=== PATIENT | female | born 1950 | race Two or more races ===

== ENCOUNTER 2017-04-14 09:53 | Emergency (ER) | payer MEDICARE, MEDICAID ==
[2017-04-14] MEDS ORDERED: NS 0.9% 1000 ML* 1,000 ML IV ONE ×2 (10:47→13:43)
[2017-04-14] MEDS ORDERED: Ondansetron INJ* 2 MG/ML VIAL IV ONE (10:49)
[2017-04-14] MEDS ORDERED: Ondansetron INJ* 2 MG/ML VIAL ONE (10:50)
[2017-04-14] MEDS ORDERED: Ketorolac INJ* 30 MG/ML 1 ML VIAL IV PUSH ONE (11:00)
--- NOTE | 2017-04-14 11:02 | ED ---
Nausea/Vomiting/Diarrhea HPI - HPI Summary HPI Summary: 66 female presents to ED with complaints of nausea, vomiting, diffuse abdominal pain and diarrhea. Patient states symptoms began around 5pm yesterday 04/13/17 which began with stomach upset however worsened throughout the night last night and was accompanied with vomiting and diarrhea. States she has been having episodes of diarrhea/vomiting every 15-30 minutes throughout the night with last episodes being around 830-900am today. Took an omeprazole yesterday when began to have stomach upset however did not give relief. Describes abdominal pain to be diffuse and cramping/sharp. She denies chest pain and trouble breathing. No abdominal pain diffusely. Denies blood in stool and vomit. No urinary symptoms. No PMHx other than HTN and takes 2 medications for it. No other medication or complaints. Has had similar symptoms in the past, 2 years ago, when she was diagnosed and treated for an "intestinal infection". Also admits to recent antibiotic use 1 month ago for URI. No recent travel or known sick contacts. No known take out food. - History of Current Complaint Chief Complaint: EDGeneral Stated Complaint: FEVER/WEAK/DIZZINESS Time Seen by Provider: 04/14/17 10:06 Hx Obtained From: Patient ?: No Onset/Duration: Sudden Onset, Lasting Hours, Still Present Timing: Constant Severity Initially: Mild Severity Currently: Moderate Pain Intensity: 8 Pain Scale Used: 0-10 Numeric Location: Diffuse Character: Sharp, Cramping Nausea/Vomiting Presence: Nauseated, Vomiting Vomiting Frequency: Every 15-60 minutes Nausea/Vomiting Duration: 0-12 hours Vomiting Characteristics: Retching, Bilious Diarrhea Presence: Yes Diarrhea Frequency: Every 15-60 minutes Diarrhea Duration: 0-12 hours Diarrhea Characteristics: Watery - Allergies/Home Medications Allergies/Adverse Reactions: Allergies Allergy/AdvReac Type Severity Reaction Status Date / Time No Known Allergies Allergy Verified 04/09/17 15:03 PMH/Surg Hx/FS Hx/Imm Hx Endocrine/Hematology History: Denies: Hx Diabetes, Hx Thyroid Disease Cardiovascular History: Reports: Hx Hypertension Denies: Hx Congestive Heart Failure Comment Only: Other Cardiovascular Problems/Disorders - MALAGINACY Respiratory History: Reports: Hx Asthma Denies: Hx Chronic Obstructive Pulmonary Disease (COPD) GI History: Reports: Other GI Disorders - appendectomy, bowel Denies: Hx Ulcer History: Denies: Hx Renal Disease Musculoskeletal History: Reports: Other Musculoskeletal History - BACK PAIN 2 YEARS AGO- NO PROBLEMS NOW Denies: Hx Osteoporosis Sensory History: Reports: Hx Contacts or Glasses - REAING Denies: Hx Hearing Aid Opthamlomology History: Reports: Hx Contacts or Glasses - REAING Neurological History: Reports: Hx Headaches - APPROX 1 EVERY 2 MONTHS, Hx Migraine - Cancer History Cancer Type, Location and Year: LUNG CA Hx Chemotherapy: No Hx Radiation Therapy: No - NO RADIATION OR CHEMO, JUST SURGERY - Surgical History Surgery Procedure, Year, and Place: Appendectomy 1973, Intestinal Occlusion 1988 ,breast bx, bilateral cataract extractions, mediastinoscopy; 10/2013- REMOVAL [place] [facility] [place] . Hx Anesthesia Reactions: No - Immunization History Date of Tetanus Vaccine: Unk Date of Influenza Vaccine: August 2012 Infectious Disease History: No Infectious Disease History: Denies: Hx Hepatitis, Hx Human Immunodeficiency Virus (HIV), Traveled Outside the [place] in Last 30 Days - Family History Known Family History: Positive: None - Social History Alcohol Use: None Substance Use Type: Reports: None Smoking Status (MU): Never Smoked Tobacco Have You Smoked in the Last Year: No Review of Systems Constitutional: Negative Cardiovascular: Negative Respiratory: Negative Positive: Abdominal Pain, Vomiting, Diarrhea, Nausea Neurological: Negative All Other Systems Reviewed And Are Negative: Yes Physical Exam Triage Information Reviewed: Yes Vital Signs On Initial Exam: Initial Vitals Temp Pulse Resp BP Pulse Ox 98.0 F 110 15 154/83 98 04/14/17 10:00 04/14/17 10:00 04/14/17 10:00 04/14/17 10:00 04/14/17 10:00 tachycardia improved to 94 after fluids, BP also improved to 134/77 Vital Signs Reviewed: Yes Appearance: Positive: Well-Appearing, No Pain Distress, Well-Nourished Skin: Positive: Warm, Skin Color Reflects Adequate Perfusion, Dry. Negative: Cold, Cyanosis @, Jaundiced, Pale, Erythema @ Head/Face: Positive: Normal Head/Face Inspection Eyes: Positive: EOMI, COREY, Conjunctiva Clear ENT: Positive: Normal ENT inspection, Hearing grossly normal, Pharynx normal. Negative: Nasal congestion, Nasal drainage Neck: Positive: Supple, Nontender, No Lymphadenopathy Respiratory/Lung Sounds: Positive: Clear to Auscultation, Breath Sounds Present. Negative: Rales, Rhonchi, Tracheal Deviation, Wheezes Cardiovascular: Positive: Normal, RRR, Pulses are Symmetrical in both Upper and Lower Extremities. Negative: Murmur, Rub Abdomen Description: Positive: No Organomegaly, Soft, Guarding, Other: - tender on palpation diffusely however no pain of RLQ. Negative: Bruit, CVA Tenderness (R), CVA Tenderness (L), Distended, Peritoneal Signs, Pulsatile Mass Bowel Sounds: Positive: Present, Hyperactive Musculoskeletal: Positive: Normal, Strength/ROM Intact Neurological: Positive: Normal, Sensory/Motor Intact, Alert, Oriented to Person Place, Time, CN Intact II-III, Reflexes Intact, NV Bundle Intact Distally, Normal Gait - [place] Coma Scale Coma Scale Total: 15 Diagnostics - Vital Signs Vital Signs Temp Pulse Resp BP Pulse Ox 04/14/17 10:00 98.0 F 110 15 154/83 98 - Laboratory Result Diagrams: 04/14/17 11:14 04/14/17 11:14 Lab Statement: Any lab studies that have been ordered have been reviewed, and results considered in the medical decision making process. - EKG EKG Cardiac Rate: NL EKG Rhythm: Sinus Tachycardia ST Segment: Normal Ectopy: None EKG Interpretation: sinus tachy at 107, normal without st elevation EKG Comparison: No Significant Change Re-Evaluation - Re-Evaluation First Eval Re-Evaluation Time: 12:30 Change: Improved - feeling better waiting to give stool sample Second Eval Re-Evaluation Time: 15:00 Change: Improved - feeling better, no episodes of vomiting or diarrhea, tachycardia improved after fluids, updated on lab results. ready to be d/c. able to tolerate po Naus/Vom/Diarrhea Course/Dx - Course Course Of Treatment: labs obtained slightly elevated WBC with left shift and CRP elevation. negative troponin. stool culture attempted to be obtained however patient was unable to give significant amount. stool occult blood obtained and negative. blood cultures obtained. did have recent antibiotic use. was unable to obtain CT abd/pelvis due to recent scan on 04/09 also due to low conern for diverticulitis at this time, no pain in RLQ on palpation. Afebrile and normal vitals other than slight tachycardia, patient states this has been ongoing for a while and follows flat hammerer. Also dehydrated/suffering viral illness which also could be causing tachycardia. No chest pain or trouble breathing. On re-eval patient was feeling much improved without any more episodes of nausea/vomiting. Was able to tolerate PO. Given 2 bags of fluids, toradol and zofran had relief. Does not appear to need antibiotic treatment at this time. No concern for other etiology at this time. Aware of worsening signs and symptoms to watch out for. Return if occur or do not improve within 48 hours , especially diarrhea. Follow up with PCP. - Differential Dx/Diagnosis Differential Diagnoses - Female: Diverticulitis, Diverticulosis, Gastroenteritis (Viral), Gastroenteritis (Bacterial), Vomiting, Diarrhea, Colitis Provider Diagnoses: gastroenteritis, nausea/vomiting/diarrhea Condition At Discharge: Improved - Physician Notification/Consults Discussed Case/Management/Disposition Of Patient With: Dr Roland Discharge - Discharge Plan Condition: Stable Disposition: HOME Prescriptions: Ondansetron ODT TAB* [Zofran 4 MG Odt TAB*] 4 mg PO Q6H PRN #10 tab.odt PRN Reason: Nausea Patient Education Materials: Gastroenteritis (ED), Acute Nausea and Vomiting ( ED), Acute Diarrhea (ED) Referrals: Federico Silva MD [Primary Care Provider] - Additional Instructions: Increase fluid intake to stay well hydrated. Stick to a bland diet when able to eat such as bananas, rice, applesauce and toast. Take prescribed zofran as needed for nausea/vomiting. Get plenty of rest. Any new or worsening symptoms such as fever, profuse vomiting/diarrhea and generally feeling ill lasting longer than 48 hours, blood in stool or vomit, please return to ED immediately as discussed. Follow up with PCP within 1 week to ensure improvement.
[2017-04-14 11:20] LABS: ABS Basophils 0 10^3/ul (0-0.2); ABS Eosinophils 0 10^3/ul (0-0.6); ABS Lymphocytes 0.6 10^3/ul (1.0-4.8); ABS Monocytes 0.3 10^3/ul (0-0.8); ABS Neutrophils 11.1 10^3/ul (1.5-7.7); ABS Nucleated RBC 0 10^3/ul; Eosinophil % 0 % (0-6); Hematocrit 36 % (35-47); Hemoglobin 12.1 g/dl (12.0-16.0); Lymphocyte % 5.3 % (25-47); Mean Corpuscular HGB Conc 34 g/dl (31-36); Mean Corpuscular Hemoglobin 27 pg (27-31); Mean Corpuscular Volume 81 fL (80-97); Mean Platelet Volume 8 um3 (7.4-10.4); Nucleated Red Blood Cells % 0; Platelet Count 234 10^3/ul (150-450); Red Blood Count 4.49 10^6/ul (4.0-5.4); Red Cell Distribution Width 15 % (10.5-15)
[2017-04-14 11:39] LABS: EGFR Non-African American 92.6 (>60)
[2017-04-14] MEDS ORDERED: Ondansetron ODT TAB* 4 MG PO PRN (15:30)
[2017-04-14] MEDS ORDERED: Ondansetron ODT TAB* 4 MG ONE (15:40)
[2017-04-14 15:45] VITALS: BP 130/84
[2017-04-14] MEDS ORDERED: Ondansetron ODT TAB* 4 MG PO ONE (15:51)
== END 2017-04-14 15:43 | disposition home or self-care (01) ==
LOC: ED 09:53
DX: K52.9 Noninfective gastroenteritis and colitis, unspecified (principal); R11.2 Nausea with vomiting, unspecified; R10.9 Unspecified abdominal pain; R19.7 Diarrhea, unspecified; R42 Dizziness and giddiness
CPT/HCPCS: 36415; 80053; 82270; 83605; 83690; 83735; 83880; 84484; 85025; 86140; 87040; 93005; 96374; 96375; 99283; A9270-GY; J1885; J2405

== ENCOUNTER 2018-02-10 13:06 | Emergency (ER) | payer MEDICARE, MEDICAID ==
[2018-02-10] MEDS ORDERED: NS 0.9% 1000 ML* 1,000 ML IV ONE (16:20)
[2018-02-10] MEDS ORDERED: Ondansetron INJ* 2 MG/ML VIAL IV ONE (16:20)
[2018-02-10] MEDS ORDERED: Morphine INJ* 4 MG/ML 1 ML SYRINGE (NEW SYRINGE VERSION) IV ONE (16:20)
[2018-02-10] MEDS ORDERED: Albuterol/Ipratropium NEB.SOL* Albuterol 2.5 MG/Ipratropium 0.5 MG 3 ML INH ONE (16:21)
[2018-02-10] MEDS ORDERED: Diltiazem IV* 5 MG/ML 5 ML VIAL (for loading dose/IV Push) (25 MG) IV SLOW PU ONE (16:24)
[2018-02-10 16:38] LABS: ABS Basophils 0.1 10^3/ul (0-0.2); ABS Eosinophils 0.1 10^3/ul (0-0.6); ABS Lymphocytes 3.8 10^3/ul (1.0-4.8); ABS Monocytes 0.6 10^3/ul (0-0.8); ABS Nucleated RBC 0 10^3/ul; Eosinophil % 1.6 % (0-6); Hematocrit 40 % (35-47); Hemoglobin 13.1 g/dl (12.0-16.0); Lymphocyte % 39.2 % (25-47); Mean Corpuscular HGB Conc 33 g/dl (31-36); Mean Corpuscular Hemoglobin 27 pg (27-31); Mean Corpuscular Volume 82 fL (80-97); Mean Platelet Volume 8.1 um3 (7.4-10.4); Nucleated Red Blood Cells % 0.1; Platelet Count 300 10^3/ul (150-450); Red Blood Count 4.82 10^6/ul (4.00-5.40); Red Cell Distribution Width 15 % (10.5-15); White Blood Count 9.6 10^3/ul (3.5-10.8)
--- NOTE | 2018-02-10 16:43 | ED ---
GI/ HPI - HPI Summary HPI Summary: 67 year old female presents with abdominal pain back pain for the past 3 weeks. She states that it starts in the left side of her lower back. States it hurts in her entire abdomen. She admits to diarrhea. She admits to nausea and vomiting. She also states she's been having a cough for 2 weeks. 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 States she is scheduled for CT tomorrow of chest. Dr. Fletcher is her oncologist. She denies any chest pain. She admits shortness breath. She has history of asthma. She does not use inhaler. She denies any sore throat. she admits to dysuria. She admits to weakness. She admits to subjective fevers. States her abdominal pain feels similar to when she had intra-abdominal infection in 2012. She denies any recent antibiotic use. No blood in her stool. No injury to her back. No saddle anesthesia or loss of bowel or bladder. She admits to dysuria. She denies any weakness this in her legs. She admits to occasionally pain down her legs. No numbness or tingling down her legs. Has full range of motion of her back. - History of Current Complaint Chief Complaint: EDBackInjuryPain Time Seen by Provider: 02/10/18 16:10 Stated Complaint: ABD/BACK PAIN Pain Intensity: 8 - Allergy/Home Medications Allergies/Adverse Reactions: Allergies Allergy/AdvReac Type Severity Reaction Status Date / Time No Known Allergies Allergy Verified 02/10/18 13:24 PMH/Surg Hx/FS Hx/Imm Hx Endocrine/Hematology History: Denies: Hx Diabetes, Hx Thyroid Disease Cardiovascular History: Reports: Hx Hypertension Denies: Hx Congestive Heart Failure Comment Only: Other Cardiovascular Problems/Disorders - MALAGINACY Respiratory History: Reports: Hx Asthma Denies: Hx Chronic Obstructive Pulmonary Disease (COPD) GI History: Reports: Other GI Disorders - appendectomy, bowel Denies: Hx Ulcer History: Denies: Hx Renal Disease Musculoskeletal History: Reports: Other Musculoskeletal History - BACK PAIN 2 YEARS AGO- NO PROBLEMS NOW Denies: Hx Osteoporosis Sensory History: Reports: Hx Contacts or Glasses - REAING Denies: Hx Hearing Aid Opthamlomology History: Reports: Hx Contacts or Glasses - REAING Neurological History: Reports: Hx Headaches - APPROX 1 EVERY 2 MONTHS, Hx Migraine - Cancer History Cancer Type, Location and Year: LUNG CA Hx Chemotherapy: No Hx Radiation Therapy: No - NO RADIATION OR CHEMO, JUST SURGERY - Surgical History Surgery Procedure, Year, and Place: Appendectomy 1973, Intestinal Occlusion 1988 ,breast bx, bilateral cataract extractions, mediastinoscopy; 10/2013- [place]G [place]CER- [facility] [place] [facility] [place] LLAM[place]. . Hx Anesthesia Reactions: No - Immunization History Date of Tetanus Vaccine: Unk Date of Influenza Vaccine: August 2012 Infectious Disease History: No Infectious Disease History: Denies: Hx Hepatitis, Hx Human Immunodeficiency Virus (HIV), Traveled Outside the [place] in Last 30 Days - Family History Known Family History: Positive: None - Social History Alcohol Use: None Substance Use Type: Reports: None Smoking Status (MU): Never Smoked Tobacco Have You Smoked in the Last Year: No Review of Systems Negative: Fever Negative: Chest Pain Positive: Cough. Negative: Shortness Of Breath Positive: Abdominal Pain, Vomiting, Diarrhea, Nausea Positive: dysuria All Other Systems Reviewed And Are Negative: Yes Physical Exam Triage Information Reviewed: Yes Vital Signs On Initial Exam: Initial Vitals Temp Pulse Resp BP Pulse Ox 97.8 F 88 20 154/96 100 02/10/18 13:17 02/10/18 13:17 02/10/18 13:17 02/10/18 13:17 02/10/18 13:17 Vital Signs Reviewed: Yes Appearance: Positive: Well-Appearing Skin: Positive: Warm, Dry Head/Face: Positive: Normal Head/Face Inspection Eyes: Positive: Normal, EOMI, COREY, Conjunctiva Clear ENT: Positive: Normal ENT inspection, Pharynx normal, TMs normal Neck: Positive: Supple, Nontender, No Lymphadenopathy Respiratory/Lung Sounds: Positive: Clear to Auscultation, Breath Sounds Present Cardiovascular: Positive: Normal, RRR Abdomen Description: Positive: Soft, Other: - mild diffuse tenderness Bowel Sounds: Positive: Present Musculoskeletal: Positive: Strength/ROM Intact - back with pain, Other - tenderness lower back, neg SLR, good pulses, sensation grossly intact Neurological: Positive: Normal Psychiatric: Positive: Normal Diagnostics - Vital Signs Vital Signs Temp Pulse Resp BP Pulse Ox 02/10/18 13:17 97.8 F 88 20 154/96 100 - Laboratory Lab Results: Lab Results 02/10/18 Range/Units 16:31 WBC 9.6 (3.5-10.8) 10^3/ul RBC 4.82 (4.00-5.40) 10^6/ul Hgb 13.1 (12.0-16.0) g/dl Hct 40 (35-47) % MCV 82 (80-97) fL MCH 27 (27-31) pg MCHC 33 (31-36) g/dl RDW 15 (10.5-15) % Plt Count 300 (150-450) 10^3/ul MPV 8.1 (7.4-10.4) um3 Neut % (Auto) 52.2 (38-83) % Lymph % (Auto) 39.2 (25-47) % [place] % (Auto) 6.2 (0-7) % Eos % (Auto) 1.6 (0-6) % Baso % (Auto) 0.8 (0-2) % Absolute Neuts (auto) 5.0 (1.5-7.7) 10^3/ul Absolute Lymphs (auto) 3.8 (1.0-4.8) 10^3/ul Absolute Monos (auto) 0.6 (0-0.8) 10^3/ul Absolute Eos (auto) 0.1 (0-0.6) 10^3/ul Absolute Basos (auto) 0.1 (0-0.2) 10^3/ul Absolute Nucleated RBC 0 10^3/ul Nucleated RBC % 0.1 Result Diagrams: 02/10/18 16:31 02/10/18 16:31 Lab Statement: Any lab studies that have been ordered have been reviewed, and results considered in the medical decision making process. - CT abd CT Interpretation Completed By: Radiologist Summary of CT Findings: #. Unchanged 1.7 cm RIGHT adrenal nodule compared with the January 08, 2017 CT. #. No pathologic process of the alimentary tract evident. #. Negative for lymphadenopathy. #. Negative for aneurysm of the abdominal aorta. #. Negative for suspicious focal osseous lesions or fractures. #. Multilevel advanced degenerative spondylosis and facet joint osteoarthritis with. resulting acquired spinal stenosis as described with significant interval worsening. compared with the most recent CT through the lumbar sacral spine from March 19, 2014. - EKG No standard instances Cardiac Rate: NL EKG Rhythm: Sinus Rhythm Summary of EKG Findings: sinus rhythm, prolonged NC Re-Evaluation - Re-Evaluation First Eval Re-Evaluation Time: 20:02 Change: Improved Comment: feeling better, bp normal. GIGU Course/Dx - Course Course Of Treatment: 67 year old female presents with abdominal pain back pain for the past 3 weeks. She states that it starts in the left side of her lower back. States it hurts in her entire abdomen. She admits to diarrhea. She admits to nausea and vomiting. She also states she's been having a cough for 2 weeks. 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 States she is scheduled for CT tomorrow of chest. Dr. Fletcher is her oncologist. She denies any chest pain. She admits shortness breath. She has history of asthma. She does not use inhaler. She denies any sore throat. she admits to dysuria. She admits to weakness. She admits to subjective fevers. States her abdominal pain feels similar to when she had intra-abdominal infection in 2012. She denies any recent antibiotic use. No blood in her stool. No injury to her back. No saddle anesthesia or loss of bowel or bladder. She admits to dysuria. She denies any weakness this in her legs. She admits to occasionally pain down her legs. No numbness or tingling down her legs. Has full range of motion of her back. On exam tenderness of left side of lower back. Negative straight leg raise. Neurovascularly intact. has diffuse tenderness of the abdomen. lungs CTA. Discussed will get a CT of the chest with the abdomen as scheduled for such tomorrow. urine normal. wbc normal. troponin neg. bnp normal. ekg normal. bp was high so dilitazem was given which reduced it to normal. CT chest, abd showed no acute process but worsening degenerative changes. discussed will add on muscle relaxer for back pain. told to follow up with primary about blood pressure and [place]ira about cancer. patient understand and agrees with plan. - Diagnoses Differential Diagnoses - Female: Colitis, Pyelonephritis, Urinary Tract Infection Provider Diagnoses: Back pain, Abdominal pain, Cough, Hypertension Discharge - Sign-Out/Discharge Documenting (check all that apply): Patient Departure - Discharge Plan Condition: Good Disposition: HOME Prescriptions: Albuterol HFA INHALER* [Ventolin HFA Inhaler*] 1 puff INH Q6H PRN #1 mdi PRN Reason: Cough Methocarbamol TAB* [Robaxin 500 MG TAB*] 500 mg PO TID PRN #15 tab PRN Reason: Pain Patient Education Materials: Back Pain (ED) Referrals: Federico Silva MD [Primary Care Provider] - Additional Instructions: Take muscle relaxers three times a day take 1 puff inhaler every 6 hours for cough Use Tylenol for pain every 6 hours ice/heat area, move as much as possible Follow up with primary within 5 days about blood pressure, call to get meds refilled Follow up with dr fletcher Return to ED if develop any new or worsening symptoms - Billing Disposition and Condition Condition: GOOD Disposition: Home
[2018-02-10 16:46] LABS: INR 0.9 (0.77-1.02)
[2018-02-10 16:55] LABS: EGFR Non-African American 95.7 (>60)
[2018-02-10] MEDS ORDERED: Iohexol 300* (CONTRAST) 10 ML SDV IV ONE (17:14)
[2018-02-10 17:38] LABS: Urine Appearance Clear; Urine Blood 1+ (Negative); Urine Color Straw; Urine Ketones Negative (Negative); Urine Protein Negative (Negative); Urine Red Blood Cell Trace(0-2/hpf) (Absent); Urine Specific Gravity 1.005 (1.010-1.030); Urine Urobilinogen Negative (Negative); Urine White Blood Cell Absent (Absent)
--- NOTE | 2018-02-10 19:40 | RAD ---
INDICATION: Cough. Diffuse abdominal pain. Low back pain. Post appendectomy. Previous bowel obstruction. History of lung cancer. COMPARISON: April 09, 2017 CT. TECHNIQUE: Multidetector CT images were obtained from the lung apices to the ischial tuberosities with 80 mL Omnipaque 300 IV contrast. Oral contrast administered. Multiplanar bone algorithm images of the lumbar sacral spine provided. CHEST REPORT: Image 21; 0.7 cm nodule at the RIGHT upper lobe is unchanged. RIGHT hemithorax volume loss reflecting previous partial pneumonectomy. Negative for pleural effusions or pneumothorax. Negative for thoracic lymphadenopathy, cardiomegaly, pericardial effusion. Normal diameter thoracic aorta. No evidence for dissection of the thoracic aorta within limits of routine contrast-enhanced CT. Postsurgical defects at the RIGHT sixth rib reflecting previous thoracotomy. No suspicious thoracic osseous lesions evident. CHEST IMPRESSION: #. Noted RIGHT upper lobe pulmonary nodule is grossly unchanged compared with a CT from June 19, 2014 without concern most consistent with a benign granuloma. #. No acute intrathoracic process evident. ABDOMEN PELVIS REPORT: LIVER / GALLBLADDER / PANCREAS / SPLEEN: Unchanged 1.5 cm water density cyst at the dome of the liver. Post cholecystectomy with unchanged mild intra and extrahepatic biliary dilatation. Unremarkable pancreas and spleen. ALIMENTARY TRACT: Negative for CT abnormality of the upper GI, small bowel, or colon. The appendix is not visualized consistent with surgical history. Negative for ascites, free air, or significant hernias. MESENTERIC: Unremarkable. ADRENAL / GENITOURINARY: No significant change in 1.7 cm soft tissue density RIGHT adrenal nodule compared with the April 09, 2017 exam. Unremarkable LEFT adrenal gland. Symmetric nephrograms and pyelograms. Negative for hydronephrosis. No suspicious focal renal lesions or abnormality of the ureters or distended urinary bladder. Small calcified uterine fibroids. Unremarkable adnexal regions. RETROPERITONEAL: Negative for lymphadenopathy. VASCULAR: Negative for aneurysm of the abdominal aorta or iliac arteries. Negative for arterial dissection within limits of routine portal venous phase CT. Unremarkable partially decompressed IVC. BONES: Multilevel degenerative spondylosis at the lumbar sacral spine with reactive endplate sclerosis. No suspicious focal osseous lesions evident. At L1-L2 mild annular disc bulge and posterior element osteoarthritis results in mild alteration in the shape of the thecal sac without significant resulting central canal stenosis. At L2-L3 dorsal disc osteophyte complex and posterior element osteoarthritis results in moderate acquired central canal stenosis and mild RIGHT foraminal stenosis. At L3-L4 annular disc bulge and posterior element osteoarthritis results in moderate acquired central canal stenosis and mild RIGHT foraminal stenosis. At L4-L5 annular disc bulge and posterior element osteoarthritis results in severe acquired central canal stenosis and mild RIGHT and moderate LEFT foraminal stenosis. At L5-S1 vertebral endplate osteophytosis and facet joint osteoarthritis results in mild RIGHT and moderate LEFT foraminal stenosis. SOFT TISSUE: Unremarkable. ABDOMEN PELVIS IMPRESSION: #. Unchanged 1.7 cm RIGHT adrenal nodule compared with the January 08, 2017 CT. #. No pathologic process of the alimentary tract evident. #. Negative for lymphadenopathy. #. Negative for aneurysm of the abdominal aorta. #. Negative for suspicious focal osseous lesions or fractures. #. Multilevel advanced degenerative spondylosis and facet joint osteoarthritis with resulting acquired spinal stenosis as described with significant interval worsening compared with the most recent CT through the lumbar sacral spine from March 19, 2014.
[2018-02-10 20:16] VITALS: BP 129/74
== END 2018-02-10 20:16 | disposition home or self-care (01) ==
LOC: ED 13:06
DX: M54.5 Low back pain (principal); R10.84 Generalized abdominal pain; R05 Cough; R30.0 Dysuria; I10 Essential (primary) hypertension; Z85.118 Personal history of other malignant neoplasm of bronchus and lung; Z90.89 Acquired absence of other organs
CPT/HCPCS: 36415; 71260; 72131; 74177; 80053; 81003; 81015; 83605; 83690; 83735; 83880; 84484; 85025; 85610; 85730; 86140; 93005; 96374; 96375; 99284; A9270-GY; J2270; J2405; Q9967

== ENCOUNTER 2018-12-24 09:31 | Emergency (ER) | payer MEDICARE, MEDICAID ==
--- NOTE | 2018-12-24 11:22 | ED ---
Complex/Multi-Sys Presentation - HPI Summary HPI Summary: This patient is a 68 year old F presenting to [facility] with a chief complaint of generalized weakness and body pain since 1900 yesterday. Last night, she developed generalized weakness and body pain, strong PEDERSEN, and increased blood pressure. Three months ago, pt was in [place] and developed general body pain, stronger on the right side. The patient rates the pain 9/10 in severity. Symptoms aggravated by nothing. Symptoms alleviated by nothing. Patient reports fever, fatigue, ABD pain. Patient denies vomiting, diarrhea, dysuria, numbness/tingling. Medications reviewed. Allergies noted. Pt has hx of lung cancer. Pt does not smoke or drink alcohol. - History Of Current Complaint Chief Complaint: EDGeneral Time Seen by Provider: 12/24/18 11:12 Hx Obtained From: Patient Onset/Duration: Sudden Onset, Lasting Days - 1, Still Present Severity Currently: Moderate Severity Initially: Moderate Character: Pressure - entire body Aggravating Factor(s): nothing Alleviating Factor(s): nothing Associated Signs And Symptoms: Positive: Weakness, Headache, Abdominal Pain, Fever, Other - positive - generalized body pain, increased blood pressure, fatigue. negative - numbness/tingling. Negative: Vomiting, Diarrhea, Dysuria - Allergies/Home Medications Allergies/Adverse Reactions: Allergies Allergy/AdvReac Type Severity Reaction Status Date / Time No Known Allergies Allergy Verified 12/24/18 09:40 Home Medications: Home Medications Albuterol HFA INHALER* [Ventolin HFA Inhaler*] 1 - 2 puff INH Q6H PRN 12/24/18 [ History Confirmed 12/24/18] Omeprazole CAP (NF) [Prilosec CAP* 20 MG] 20 mg PO DAILY 12/24/18 [History Confirmed 12/24/18] Sertraline* [Zoloft*] 50 mg PO DAILY 12/24/18 [History Confirmed 12/24/18] PMH/Surg Hx/FS Hx/Imm Hx Previously Healthy: No Endocrine/Hematology History: Denies: Hx Diabetes, Hx Thyroid Disease Cardiovascular History: Reports: Hx Hypertension Denies: Hx Congestive Heart Failure, Hx Pacemaker/ICD Comment Only: Other Cardiovascular Problems/Disorders - MALAGINACY Respiratory History: Reports: Hx Asthma Denies: Hx Chronic Obstructive Pulmonary Disease (COPD) GI History: Reports: Other GI Disorders - appendectomy, bowel Denies: Hx Ulcer History: Denies: Hx Renal Disease Musculoskeletal History: Reports: Other Musculoskeletal History - BACK PAIN 2 YEARS AGO- NO PROBLEMS NOW Denies: Hx Osteoporosis Sensory History: Reports: Hx Contacts or Glasses - REAING Denies: Hx Hearing Aid Opthamlomology History: Reports: Hx Contacts or Glasses - REAING Neurological History: Reports: Hx Headaches - APPROX 1 EVERY 2 MONTHS, Hx Migraine Psychiatric History: Denies: Hx Panic Disorder - Cancer History Cancer Type, Location and Year: LUNG CA Hx Chemotherapy: No Hx Radiation Therapy: No - NO RADIATION OR CHEMO, JUST SURGERY - Surgical History Surgical History: Yes Surgery Procedure, Year, and Place: Appendectomy 1973, Intestinal Occlusion 1988 ,breast bx, bilateral cataract extractions, mediastinoscopy; 10/2013- [place] [facility] [place] . Hx Anesthesia Reactions: No - Immunization History Date of Tetanus Vaccine: Unk Date of Influenza Vaccine: August 2012 Infectious Disease History: No Infectious Disease History: Denies: Hx Hepatitis, Hx Human Immunodeficiency Virus (HIV), Traveled Outside the [place] in Last 30 Days - Family History Known Family History: Positive: None - Social History Alcohol Use: None Substance Use Type: Reports: None Smoking Status (MU): Never Smoked Tobacco Have You Smoked in the Last Year: No Review of Systems Positive: Fever, Fatigue Cardiovascular: Other - positive - increased blood pressure Positive: Abdominal Pain. Negative: Vomiting, Diarrhea Negative: dysuria Musculoskeletal: Other - positive - whole body pain Positive: Headache, Weakness. Negative: Numbness Positive: Other All Other Systems Reviewed And Are Negative: Yes Physical Exam - Summary Physical Exam Summary: Constitutional: Well-developed, Well-nourished, Alert. (-) Distressed Skin: Warm, Dry HENT: Normocephalic; Atraumatic Eyes: Conjunctiva normal Neck: Musculoskeletal ROM normal neck. (-) JVD, (-) Stridor, (-) Tracheal deviation Cardio: Rhythm regular, rate normal, Heart sounds normal; Intact distal pulses; The pedal pulses are 2+ and symmetric. Radial pulses are 2+ and symmetric. (-) Murmur Pulmonary/Chest wall: Effort normal. (-) Respiratory distress, (-) Wheezes, (-) Rales Abd: Soft. (-) Tenderness, (-) Distension, (-) Guarding, (-) Rebound Musculoskeletal: (-) Edema Lymph: (-) Cervical adenopathy Neuro: Alert, Oriented x3, Strength normal, Cranial nerves II-XII are grossly intact. (-) Dysmetria, (-) Nystagmus, (-) Ataxia by finger to nose testing, (-) Sensory deficit. Psych: Mood and affect Normal Triage Information Reviewed: Yes Vital Signs On Initial Exam: Initial Vitals Temp Pulse Resp BP Pulse Ox 98.3 F 82 16 180/98 98 12/24/18 09:34 12/24/18 09:34 12/24/18 09:34 12/24/18 09:34 12/24/18 09:34 Vital Signs Reviewed: Yes Diagnostics - Vital Signs Vital Signs Temp Pulse Resp BP Pulse Ox 12/24/18 09:34 98.3 F 82 16 180/98 98 - Laboratory Result Diagrams: 12/24/18 11:36 12/24/18 11:36 Lab Statement: Any lab studies that have been ordered have been reviewed, and results considered in the medical decision making process. - EKG 1145 Cardiac Rate: NL - 69 BPM EKG Rhythm: Sinus Rhythm Summary of EKG Findings: Sinus rhythm, 69 BPM, no STEMI Complex Multi-Symp Course/Dx Course Of Treatment: Patient's here with generalized body pain, generalized weakness following a trip to [place] 3 months ago. Upon arrival here, patient' s overall well-appearing with a normal exam. Patient has a normal CBC with no evidence of anemia or leukocytosis. Patient has a normal CRP. Patient has normal TSH. Patient is a normal CMP. Patient has an appointment with her primary care doctor tomorrow and her oncologist on Saturday. Patient does not have an emergent condition that needed further workup here. - Diagnoses Provider Diagnoses: Fatigue, Generalized pain Discharge ED - Sign-Out/Discharge Documenting (check all that apply): Patient Departure - discharge Patient Received Moderate/Deep Sedation with Procedure: No - Discharge Plan Condition: Stable Disposition: HOME Prescriptions: Acetaminophen with Codeine [Acetaminophen-Cod #3 Tablet] 1 each PO Q8HR PRN #12 tablet MDD 3 tablets PRN Reason: Pain - Severe Patient Education Materials: Fatigue (ED) Referrals: Federico Silva MD [Primary Care Provider] - 1 Day Surya Fletcher MD [Medical Doctor] - 2 Days Additional Instructions: Come back to the ED if you have a fever, worsening symptoms, or worsening one sided weakness. Follow up with your primary care provider within 1 day. Follow up with Dr. Fletcher within 2 days. - Billing Disposition and Condition Condition: STABLE Disposition: Home - Attestation Statements Document Initiated by Fidelia: Yes Documenting Scribe: Marlon Goodman Provider For Whom Fidelia is Documenting (Include Credential): Dr. Dao Akhtar MD Scribe Attestation: IMarlon, scribed for Dr. Dao Akhtar MD on 12/24/18 at 1346. Scribe Documentation Reviewed: Yes Provider Attestation: The documentation as recorded by the Marlon williamson accurately reflects the service I personally performed and the decisions made by me, Dr. Dao Akhtar MD Status of Scribe Document: Viewed
[2018-12-24] MEDS: HYDROcodone/ACETAMIN 5-325 MG* 1 TAB PO ONE (11:36)
[2018-12-24 11:49] LABS: ABS Basophils 0.1 10^3/ul (0-0.2); ABS Eosinophils 0.2 10^3/ul (0-0.6); ABS Lymphocytes 2.7 10^3/ul (1.0-4.8); ABS Monocytes 0.6 10^3/ul (0-0.8); ABS Neutrophils 3.6 10^3/ul (1.5-7.7); Eosinophil % 3.4 %; Hematocrit 39 % (35-47); Hemoglobin 12.7 g/dL (12.0-16.0); Mean Corpuscular HGB Conc 32 g/dL (31-36); Mean Corpuscular Hemoglobin 27 pg (27-31); Mean Corpuscular Volume 83 fL (80-97); Mean Platelet Volume 8.5 fL (7.4-10.4); Nucleated Red Blood Cells % 0.1; Platelet Count 261 10^3/uL (150-450); Red Blood Count 4.73 10^6 /uL (3.70-4.87); Red Cell Distribution Width 15 % (10-15); White Blood Count 7.2 10^3/uL (3.5-10.8)
[2018-12-24 12:10] LABS: Albumin 4.1 g/dL (3.2-5.2); Albumin/Globulin Ratio 1.4 (1-3); C Reactive Protein 3.26 mg/L (<8.01); Calcium 9.4 mg/dL (8.6-10.3); EGFR African American 129.9 (>60); EGFR Non-African American 107.3 (>60); Total Bilirubin 0.5 mg/dL (0.2-1.0); Total Protein 7.1 g/dL (6.4-8.9)
[2018-12-24 12:32] LABS: TSH (Thyroid Stimulating Horm) 1.29 mcIU/mL (0.34-5.60)
[2018-12-24 12:50] VITALS: BP 119/80
== END 2018-12-24 12:44 | disposition home or self-care (01) ==
LOC: ED 09:31
DX: R53.83 Other fatigue (principal); R52 Pain, unspecified; I10 Essential (primary) hypertension; J45.909 Unspecified asthma, uncomplicated; Z85.118 Personal history of other malignant neoplasm of bronchus and lung; Z79.899 Other long term (current) drug therapy
CPT/HCPCS: 36415; 80053; 84443; 84484; 85025; 86140; 93005; 99283

== ENCOUNTER 2019-06-15 16:59 | Emergency (ER) | payer MEDICARE, MEDICAID ==
--- NOTE | 2019-06-15 19:31 | ED ---
Complex/Multi-Sys Presentation - HPI Summary HPI Summary: 69 year old F presenting to [facility] with a chief complaint of intermittent RLQ pain since 2 weeks ago radiating into the R flank and R low back. The patient rates the pain 9/10 in severity. Symptoms aggravated by nothing. Symptoms alleviated by nothing. Patient reports nausea and back pain. The patient states that she has had this pain previously, and she was placed on Ibuprofen 800mg before without relief during this episode. Patient denies any hematuria, fever, shortness of breath, chest pain, or vomiting. Medications reviewed. Allergies noted. - History Of Current Complaint Chief Complaint: EDAbdPain Time Seen by Provider: 06/15/19 19:23 Hx Obtained From: Patient Onset/Duration: Lasting Weeks - 2 Timing: Intermittent, Lasting: Location: Pain At: - Right sided Aggravating Factor(s): None Alleviating Factor(s): None Associated Signs And Symptoms: Positive: Nausea, Back Pain. Negative: Chest Pain - Allergies/Home Medications Allergies/Adverse Reactions: Allergies Allergy/AdvReac Type Severity Reaction Status Date / Time No Known Allergies Allergy Verified 06/15/19 17:09 Home Medications: Home Medications Ibuprofen TAB* [Motrin TAB*] 800 mg PO TID PRN 09/18/13 [History Confirmed 06/14] Albuterol HFA INHALER* [Ventolin HFA Inhaler*] 2 puff INH Q6H PRN 12/24/18 [ History Confirmed 06/15/19] Omeprazole CAP (NF) [Prilosec CAP* 20 MG] 20 mg PO DAILY 12/24/18 [History Confirmed 06/15/19] Sertraline* [Zoloft*] 50 mg PO DAILY 12/24/18 [History Confirmed 06/15/19] Bisoprolol TAB* [Zebeta TAB*] 2.5 mg PO DAILY 06/15/19 [History Confirmed ] Fluticasone-Salmeterol 250-50* [Advair Diskus 250-50*] 1 puff INH BID 06/15/19 [ History Confirmed 06/15/19] Lisinopril/Hydrochlorothiazide [Lisinopril-Hctz 20-12.5 mg Tab] 1 tab PO DAILY 06/15/19 [History Confirmed 06/15/19] Pantoprazole TAB * [Protonix TAB*] 40 mg PO DAILY 06/15/19 [History Confirmed ] PMH/Surg Hx/FS Hx/Imm Hx Endocrine/Hematology History: Denies: Hx Diabetes, Hx Thyroid Disease Cardiovascular History: Reports: Hx Hypertension Denies: Hx Congestive Heart Failure, Hx Pacemaker/ICD Comment Only: Other Cardiovascular Problems/Disorders - MALAGINACY Respiratory History: Reports: Hx Asthma Denies: Hx Chronic Obstructive Pulmonary Disease (COPD) GI History: Reports: Other GI Disorders - appendectomy, bowel Denies: Hx Ulcer History: Denies: Hx Renal Disease Musculoskeletal History: Reports: Other Musculoskeletal History - BACK PAIN 2 YEARS AGO- NO PROBLEMS NOW Denies: Hx Osteoporosis Sensory History: Reports: Hx Contacts or Glasses - REAING Denies: Hx Hearing Aid Opthamlomology History: Reports: Hx Contacts or Glasses - REAING Neurological History: Reports: Hx Headaches - APPROX 1 EVERY 2 MONTHS, Hx Migraine Psychiatric History: Denies: Hx Panic Disorder - Cancer History Cancer Type, Location and Year: LUNG CA Hx Chemotherapy: No Hx Radiation Therapy: No - NO RADIATION OR CHEMO, JUST SURGERY - Surgical History Surgery Procedure, Year, and Place: Appendectomy 1973, Intestinal Occlusion 1988 ,breast bx, bilateral cataract extractions, mediastinoscopy; 10/2013- REMOVAL [place]G [place]CER- [facility] [place]- [place] MURIEL Hinojosa Anesthesia Reactions: No - Immunization History Date of Tetanus Vaccine: Unk Date of Influenza Vaccine: August 2012 Infectious Disease History: No Infectious Disease History: Denies: Hx Hepatitis, Hx Human Immunodeficiency Virus (HIV), Traveled Outside the [place] in Last 30 Days - Family History Known Family History: Negative: Cardiac Disease, Hypertension, Diabetes - Social History Alcohol Use: None Substance Use Type: Reports: None Smoking Status (MU): Never Smoked Tobacco Have You Smoked in the Last Year: No Review of Systems Negative: Fever Negative: Chest Pain Negative: Shortness Of Breath Positive: Abdominal Pain - RLQ, Nausea. Negative: Vomiting Negative: hematuria Positive: Other - Right low back pain All Other Systems Reviewed And Are Negative: Yes Physical Exam - Summary Physical Exam Summary: Constitutional: Well-developed, Well-nourished, Alert. (-) Distressed Skin: Warm, Dry HENT: Normocephalic; Atraumatic Eyes: Conjunctiva normal Neck: Musculoskeletal ROM normal neck. (-) JVD, (-) Stridor, (-) Tracheal deviation Cardio: Rhythm regular, rate normal, Heart sounds normal; Intact distal pulses; The pedal pulses are 2+ and symmetric. Radial pulses are 2+ and symmetric. (-) Murmur Pulmonary/Chest wall: Effort normal. (-) Respiratory distress, (-) Wheezes, (-) Rales Abd: Soft, diffuse lower abdominal tenderness, (-) Distension, (-) Guarding, (- ) Rebound Musculoskeletal: Right CVA tenderness, (-) Edema Lymph: (-) Cervical adenopathy Neuro: Alert, Oriented x3 Psych: Mood and affect Normal Triage Information Reviewed: Yes Vital Signs On Initial Exam: Initial Vitals Temp Pulse Resp BP Pulse Ox 98.1 F 69 18 162/102 98 06/15/19 17:05 06/15/19 17:05 06/15/19 17:05 06/15/19 17:05 06/15/19 17:05 Vital Signs Reviewed: Yes Procedures - Sedation Patient Received Moderate/Deep Sedation with Procedure: No Diagnostics - Vital Signs Vital Signs Temp Pulse Resp BP Pulse Ox 06/15/19 17:05 98.1 F 69 18 162/102 98 - Laboratory Result Diagrams: 06/15/19 19:45 06/15/19 19:45 Lab Statement: Any lab studies that have been ordered have been reviewed, and results considered in the medical decision making process. - CT CT abdomen/pelvis CT Interpretation Completed By: Radiologist Summary of CT Findings: No evidence of diverticulitis. No other acute process other than possible mild. bladder wall thickening. ED physician has reviewed this report. - EKG 20:40 Cardiac Rate: NL - 64 BPM EKG Rhythm: Sinus Rhythm Summary of EKG Findings: Normal sinus rhythm at 64 bpm, normal GA, normal QRS, normal QTc, normal axis, normal ST, normal T-waves, normal EKG. ED physician has reviewed and interpreted this EKG. Complex Multi-Symp Course/Dx Course Of Treatment: 69 year old F presenting to [facility] with a chief complaint of intermittent RLQ pain since 2 weeks ago radiating into the R flank and R low back. Patient reports nausea and back pain. Physical exam findings: diffuse lower abdominal tenderness and right CVA tenderness. An EKG reveals normal sinus rhythm at 64 bpm, normal GA, normal QRS, normal QTc, normal axis, normal ST, normal T-waves, normal EKG. CT abdomen/pelvis reveals, per radiologist, No evidence of diverticulitis, No other acute process other than possible mild bladder wall thickening. Laboratory results with no significant abnormalities except for a BUN/creatinine ratio of 23 and a glucose of 125. In the ED course, the patient was given Morphine sulfate 4 mg IV. Patient will be discharged with follow up from Dr. Mccarthy at . The patient is agreeable with this plan. - Diagnoses Provider Diagnoses: Abdominal pain Discharge ED - Sign-Out/Discharge Documenting (check all that apply): Patient Departure - Discharge - Discharge Plan Condition: Stable Disposition: HOME Patient Education Materials: Acute Abdominal Pain (ED) Print Language: CROATIAN Referrals: Arvin Mccarthy DO [Doctor of Osteopathy] - Federico Silva MD [Primary Care Provider] - - Billing Disposition and Condition Condition: STABLE Disposition: Home - Attestation Statements Document Initiated by Scribe: Yes Documenting Scribe: Donna Jean-Baptiste Provider For Whom Trevore is Documenting (Include Credential): Libby Whittaker Scribe Attestation: Daniella Alejandre Natalie George, scribed for Libby Javier on 07/02 at 0533. Scribe Documentation Reviewed: Yes Provider Attestation: The documentation as recorded by the Daniella williamson Natalie George accurately reflects the service I personally performed and the decisions made by Libby shah Status of Scribe Document: Viewed
[2019-06-15] MEDS ORDERED: Morphine 4 MG/ML VIAL (1 ml) 4 MG/ML VIAL IV ONE (19:35)
[2019-06-15 19:56] LABS: ABS Basophils 0.1 10^3/ul (0-0.2); ABS Eosinophils 0.2 10^3/ul (0-0.6); ABS Lymphocytes 2.9 10^3/ul (1.0-4.8); ABS Monocytes 0.6 10^3/ul (0-0.8); ABS Neutrophils 3.7 10^3/ul (1.5-7.7); Hematocrit 38 % (35-47); Hemoglobin 12.6 g/dL (12.0-16.0); Lymphocyte % 38.8 %; Mean Corpuscular HGB Conc 33 g/dL (31-36); Mean Corpuscular Hemoglobin 28 pg (27-31); Mean Corpuscular Volume 83 fL (80-97); Mean Platelet Volume 8.7 fL (7.4-10.4); Nucleated Red Blood Cells % 0.1; Platelet Count 234 10^3/uL (150-450); Red Blood Count 4.58 10^6 /uL (3.70-4.87); Red Cell Distribution Width 15 % (10-15); White Blood Count 7.4 10^3/uL (3.5-10.8)
[2019-06-15 20:25] LABS: Albumin 4.1 g/dL (3.2-5.2); Albumin/Globulin Ratio 1.3 (1-3); C Reactive Protein 3.11 mg/L (<8.01); Calcium 9.1 mg/dL (8.6-10.3); EGFR African American 117.3 (>60); Globulin 3.1 g/dL (2-4); Potassium 3.9 mmol/L (3.5-5.0); Total Bilirubin 0.2 mg/dL (0.2-1.0); Total Protein 7.2 g/dL (6.4-8.9)
[2019-06-15] MEDS ORDERED: Iohexol 300* (CONTRAST) 10 ML SDV IV ONE (20:34)
[2019-06-15 21:22] LABS: Urine Appearance Clear; Urine Bilirubin Negative (Negative); Urine Blood Negative (Negative); Urine Color Yellow; Urine Glucose Negative (Negative); Urine Ketones Negative (Negative); Urine Nitrite Negative (Negative); Urine Protein Negative (Negative); Urine Specific Gravity 1.012 (1.010-1.030); Urine Urobilinogen Negative (Negative)
[2019-06-15 22:24] VITALS: BP 128/68
== END 2019-06-15 22:24 | disposition home or self-care (01) ==
LOC: ED 16:59
DX: R10.31 Right lower quadrant pain (principal); R11.0 Nausea; M54.5 Low back pain; I10 Essential (primary) hypertension; J45.909 Unspecified asthma, uncomplicated; Z79.899 Other long term (current) drug therapy
CPT/HCPCS: 36415; 74177; 80053; 81003; 83605; 83690; 84484; 85025; 86140; 93005; 96374; 99282; J2270; Q9967

== ENCOUNTER 2020-12-30 09:53 | Observation (INO) ==
[2020-12-30 12:57] LABS: ABS Basophils 0.1 10^3/ul (0-0.2); ABS Eosinophils 0.2 10^3/ul (0-0.6); ABS Lymphocytes 3.3 10^3/ul (1.0-4.8); ABS Monocytes 0.5 10^3/ul (0-0.8); ABS Neutrophils 3.4 10^3/ul (1.5-7.7); Eosinophil % 2.1 %; Hematocrit 42 % (35-47); Lymphocyte % 44.3 %; Mean Corpuscular HGB Conc 34 g/dL (31-36); Mean Corpuscular Hemoglobin 28 pg (27-31); Mean Corpuscular Volume 84 fL (80-97); Mean Platelet Volume 8.9 fL (7.4-10.4); Nucleated Red Blood Cells % 0.1; Platelet Count 312 10^3/uL (150-450); Red Blood Count 4.97 10^6 /uL (3.70-4.87); Red Cell Distribution Width 15 % (10-15); White Blood Count 7.4 10^3/uL (3.5-10.8)
[2020-12-30 13:20] LABS: Albumin 4.5 g/dL (3.2-5.2); Albumin/Globulin Ratio 1.4 (1-3); C Reactive Protein 4.1 mg/L (<8.01); Calcium 9.8 mg/dL (8.6-10.3); EGFR African American 108.7 (>60); EGFR Non-African American 89.9 (>60); Globulin 3.3 g/dL (2-4); Potassium 3.9 mmol/L (3.5-5.0); Total Bilirubin 0.4 mg/dL (0.2-1.0); Total Protein 7.8 g/dL (6.4-8.9)
[2020-12-30] MEDS ORDERED: Iohexol 350 (CONTRAST) 500 ML MDV IV ONE (13:42)
[2020-12-30] MEDS ORDERED: Albuterol HFA INHALER 8 gm MDI INH PRN (15:29)
[2020-12-30 17:04] LABS: Rapid COVID-19 Molecular Undetected (Undetected)
[2020-12-30] MEDS ORDERED: Latanoprost 0.005% 2.5 ml BTL BOTH EYES SCH (18:00)
[2020-12-30] MEDS ORDERED: Travoprost Z 0.004% OPHTH (NF) 2.5 ML BTL BOTH EYES SCH (21:00)
[2020-12-30] MEDS ORDERED: Lansoprazole 30 MG CAP (NF) PO SCH (21:00)
[2020-12-30] MEDS: Mometasone/Formoter 200/5 MDI INH SCH (23:29)
[2020-12-31] MEDS: CMC:Brimonidine P 0.1%(NF) 1 DROP BTL BOTH EYES SCH ×2 (08:18→10:22)
[2020-12-31] MEDS: Mometasone/Formoter 200/5 MDI INH SCH (08:21)
[2020-12-31] MEDS ORDERED: Lisinopril/HCTZ 20/12.5 TB(NF) PO SCH (08:30)
[2020-12-31 12:10] VITALS: BP 113/60
== END 2020-12-31 13:06 | disposition home or self-care (01) ==
LOC: MEDTELE 09:53 → ED 09:53 → SUATTDRO 15:26 → MEDTELE 19:30
PROVIDERS: ADMIT Student in an Organized Health Care Education/Training Program; ATTEND Student in an Organized Health Care Education/Training Program